=== PATIENT | male | born 1960 | race African-American/Black ===

== ENCOUNTER 2018-06-16 14:39 | Emergency (ER) | payer OTHER ==
[~2018-06-16 14:39] MED LIST: ISOVUE-370 76%-LOCM 1 ML ONE
[2018-06-16] MEDS ORDERED: Ondansetron PF 4 MG/2 ML Vial ONE (14:57)
[2018-06-16] MEDS ORDERED: diphenhydrAMINE 50 MG/ML VIAL IVP SCH (15:15)
[2018-06-16 15:23] LABS: Hemoglobin 12.3 g/dL (14.0-18.0); Mean Corpuscular HGB CONC 31.9 g/dL (32.0-36.0); Mean Corpuscular Hemoglobin 30.9 pg (27.0-31.0); Mean Corpuscular Volume 96.9 fL (78.0-98.0); Mean Platelet Volume 8.9 fL (7.4-10.4); Platelet Count 245 thou/uL (130-400); RBC Distribution Width 11.6 % (11.5-14.5); Red Blood Cell (RBC) Count 3.97 mill/uL (4.70-6.10); White Blood Cell (WBC) Count 26.4 thou/uL (4.8-10.8)
[2018-06-16 15:40] LABS: ALT (SGPT) 24 U/L (8-55); AST (SGOT) 18 U/L (5-34); Albumin 2.9 g/dL (3.5-5.0); Alkaline Phosphatase 90 U/L (40-150); Anion Gap 13 mmol/L (10-20); BUN (Urea Nitrogen) 22 mg/dL (8.4-25.7); Bilirubin, Total 0.7 mg/dL (0.2-1.2); Calc. Creatinine Clearance 0 mL/min (70-130); Calcium 8.2 mg/dL (7.8-10.44); Carbon Dioxide 24 mmol/L (22-29); Chloride 104 mmol/L (98-107); Estimated GFR-MDRD 62; Globulin 3.9 g/dL (2.4-3.5); Glucose 254 mg/dL (70-105); Potassium 4.2 mmol/L (3.5-5.1); Protein, Total 6.8 g/dL (6.0-8.3); Sodium 137 mmol/L (136-145)
[2018-06-16 15:41] LABS: Band 18 % (5-11); Lymphocytes 4 % (21-51); MDiff Complete? YES; Monocytes 2 % (0-10); Neutrophil 76 % (42-75); PLT Morphology Comment Appears Adequate
[2018-06-16 15:43] LABS: CKMB 0.5 ng/mL (0-6.6); Troponin I 0.032 ng/mL (< 0.028)
[2018-06-16 15:52] LABS: Bilirubin Negative (Negative); Blood, Urine Large (Negative); Clarity CLOUDY (Clear); Glucose, Urine (Dipstick) 250 mg/dL (Negative); Leukocyte Trace (Negative); Nitrite Negative (Negative); Protein, Urine (Dipstick) > or equal to 300 mg/dL (Neg-Trace); Specific Gravity, Urine 1.024 (1.002-1.036); pH, Urine 5.5 (5.0-9.0)
[2018-06-16 15:55] LABS: Bacteria/HPF None Seen HPF (None Seen); Pathc Cast-AUWi Flag 2.18 (0-2.49); RBC/HPF 21-50 HPF (0-3); WBC/HPF 21-50 HPF (0-3)
[2018-06-16 15:56] LABS: Hyaline Casts/LPF 0-3 HYALINE CAST LPF (0-3 Hyaline); Renal Epithelial None Seen HPF (0-3); Transitional Epithelial NONE SEEN HPF (0-3)
--- NOTE | 2018-06-16 16:45 | ULT ---
VENOUS DUPLEX SONOGRAM RIGHT LOWER EXTREMITY 06/16/18 HISTORY: Right leg pain and edema. FINDINGS: The right common femoral vein and greater saphenous junction, femoral and deep femoral veins, poplite al and posterior tibial veins were evaluated. There is good color and spectral doppler flow, compress ion, and augmentation. IMPRESSION: No sonographic evidence of DVT within the right lower extremity. POS: [facility]
--- NOTE | 2018-06-16 17:25 | CT ---
CT ABDOMEN AND PELVIS WITH IV CONTRAST 06/16/18 HISTORY: Abdomen pain. Vomiting. FINDINGS: The lung bases are clear. Tiny cyst is noted within the left kidney. The liver, spleen, right kidney, adrenal glands, and pancreas have a normal CT appearance. Nonspecific lymph nodes scattered througho ut the abdomen and pelvis. Lack of oral contrast limits evaluation of the bowel. No evidence of obstruction or inflammation. IMPRESSION: No significant abnormalities are demonstrated. POS: [facility]
--- NOTE | 2018-06-16 17:26 | CT ---
CT ARTERIOGRAM CHEST WITH IV CONTRAST AND 3D MIP IMAGIN06/16/18 HISTORY: Chest pain. Dyspnea. FINDINGS: There is good contras opacification of the pulmonary arteries and thoracic aorta with bovine origin o f the great vessels. No lobar consolidation, pleural fluid, or mediastinal adenopathy. IMPRESSION: No CT evidence of pulmonary embolus. POS: [facility]
[2018-06-16] MEDS ORDERED: Piperacillin/Tazobactam 3.375 GM in Sodium Chloride 0.9% 100 ML IVPB ONE (18:15)
[2018-06-16] MEDS ORDERED: Piperacillin/Tazobactam 3.375 GM VIAL ONE (18:21)
[2018-06-16 19:38] LABS: Lactic Acid 2.2 mmol/L (0.5-2.2)
== END 2018-06-17 01:19 | disposition short-term general hospital (02) ==
LOC: ERS 14:39
DX: A41.9 Sepsis, unspecified organism (principal); N39.0 Urinary tract infection, site not specified; E10.9 Type 1 diabetes mellitus without complications; I10 Essential (primary) hypertension; F31.9 Bipolar disorder, unspecified; F41.9 Anxiety disorder, unspecified; R11.10 Vomiting, unspecified; R22.43 Localized swelling, mass and lump, lower limb, bilateral; R07.9 Chest pain, unspecified; Z79.899 Other long term (current) drug therapy
CPT/HCPCS: 36415; 71275; 74177; 80053; 81003; 81015; 82553; 83605; 84484; 85025; 87040; 87086; 93005; 96361; 96365; 96367; 96375; J1200; J2405; J2543; J3370